=== PATIENT | female | born 1990 | race Caucasian/White ===

== ENCOUNTER 2018-01-18 23:12 | Emergency (ER) | payer SELFPAY ==
[~2018-01-18] VITALS: Ht 162.6 cm; Wt 83.5 kg
[2018-01-18 23:14] VITALS: BP 120/75
--- NOTE | 2018-01-18 23:19 | NUR ---
AMBULATED TO ER BED 4
--- NOTE | 2018-01-18 23:30 | NUR ---
27/F CAME IN ED WITH FAMILY/FRIEND, C/O 11/30 CONSTANT BURNING NONRADIATING EPIGASTRIC PAIN, X1 DAY SINCE AM. PT REPORTS NAUSEA AND BLOATING. PT DENIES FEVER, VOMITING, DIARRHEA. LBM TODAY, PT REPORTS MILD CONSTIPATION. AOX4, AMBULATORY, RR EVEN AND UNLABORED. LUNG SOUNDS CLEAR BL. BS ACTIVE X4, ABD SOFT ROUND TENDER TO EPIGASTRIC AREA, DENIES LOWER ABD TENDERNESS. DENIES MED HX, RX. ER MD AT BEDSIDE.
[2018-01-18] MEDS ORDERED: ONDANSETRON 4 MG/2 ML VIAL IVP ONE (23:35)
[2018-01-18] MEDS ORDERED: KETOROLAC 30 MG/ML VIAL IVP ONE (23:35)
[2018-01-18] MEDS ORDERED: PANTOPRAZOLE 40 MG INJ VIAL IVP ONE (23:35)
[2018-01-18 23:50] LABS: BASOPHILS # (AUTO) 0.3 K/uL (0.00-0.22); BASOPHILS % (AUTO) 2.3 % (0.0-2.0); EOSINOPHILS # (AUTO) 0.2 K/uL (0-0.4); EOSINOPHILS % (AUTO) 2.1 % (0.0-4.0); HEMATOCRIT 42.1 % (36-48); HEMOGLOBIN 13.9 g/dL (12.0-16.0); LYMPHOCYTES # (AUTO) 2.2 K/uL (2.5-16.5); LYMPHOCYTES % (AUTO) 19.4 % (20.5-51.1); MEAN CORPUSCULAR HEMOGLOBIN 28 pg (27-31); MEAN CORPUSCULAR HGB CONC 33 g/dL (33-37); MEAN CORPUSCULAR VOLUME 85.1 fL (80-94); MONOCYTES # (AUTO) 0.8 K/uL (0.8-1.0); MONOCYTES % (AUTO) 7.1 % (1.7-9.3); NEUTROPHILS # (AUTO) 7.8 K/uL (1.8-7.7); NEUTROPHILS % (AUTO) 69.1 % (42.2-75.2); PLATELET COUNT (AUTO) 316 K/uL (140-450); RED BLOOD CELL COUNT(AUTO) 4.94 MIL/uL (4.20-5.40); RED CELL DISTRIBUTION WIDTH 12.8 % (11.6-13.7); WHITE BLOOD COUNT (AUTO) 11.2 K/uL (4.8-10.8)
[2018-01-18 23:51] LABS: APPEARANCE,URINE CLEAR (CLEAR); BILIRUBIN,URINE NEGATIVE (NEGATIVE); BLOOD, URINE MODERATE (NEGATIVE); COLOR,URINE YELLOW (YELLOW); LEUKOCYTE ESTERASE ,URINE SMALL (NEGATIVE); NITRITE, URINE NEGATIVE (NEGATIVE); UGLUCOSE NEGATIVE (NEGATIVE)
--- NOTE | 2018-01-18 23:56 | NUR ---
US TECH AT BEDSIDE
[2018-01-18 23:59] LABS: RBC,URINE 11-20 (MOD) /HPF (0-5)
[2018-01-18 23:59] LABS: ANION GAP 13.9 (8-16); CREATININE 0.9 mg/dL (0.6-1.3); POTASSIUM 3.9 mmol/L (3.5-5.1)
[2018-01-19 00:05] LABS: ALBUMIN 3.6 g/dL (3.4-5.0); TOTAL BILIRUBIN 0.3 mg/dL (0.0-1.0)
--- NOTE | 2018-01-19 00:26 | NUR ---
vss, pt stable, pt awiting u/s aaox4 at this time.
[2018-01-19 01:25] VITALS: BP 114/60
--- NOTE | 2018-01-19 01:25 | NUR ---
Patient discharged with v/s stable. Written and verbal after care instructions given and explained. Patient alert, oriented and verbalized understanding of instructions. Ambulatory with steady gait. All questions addressed prior to discharge. ID band removed. Patient advised to follow up with PMD. Rx of ZOFRAN ODT 4MG, CEPHALEXIN 500MG, OMEPRAZOLE 40MG given. Patient educated on indication of medication including possible reaction and side effects. Opportunity to ask questions provided and answered.
== END 2018-01-19 01:25 | disposition home or self-care (01) ==
LOC: MED 23:12
DX: N39.0 Urinary tract infection, site not specified (principal); K76.0 Fatty (change of) liver, not elsewhere classified; K59.00 Constipation, unspecified
CPT/HCPCS: 36415; 76705; 80053; 81001; 81025; 83690; 85025; 87086; 96374; 96375; 99284; C9113; J1885; J2405; Q0092

== ENCOUNTER 2019-09-21 23:11 | Emergency (ER) | payer MEDICAID ==
[~2019-09-21] VITALS: Ht 160 cm; Wt 88.0 kg
[2019-09-21 23:26] VITALS: BP 113/58
--- NOTE | 2019-09-21 23:36 | NUR ---
PT AMBUALTED TO BED 11 WITH STEADY GAIT
--- NOTE | 2019-09-21 23:45 | NUR ---
29 Y/O F. C/O VISUAL CHANGES. PT SAW FLASHES OF WHITE LIGHT/VISION THAT WENT DARK AND BLURRY OUT OF RIGHT EYE; OD 20/30 -1; OS 20/15 -2; OU 20/15 -2. PT CURRENTLY SEES DARK SPOTS ON THE R EYE AND STATES NORMAL VISION IN L EYE. R/L PUPPILS 4MM, BRISK RETURN. THOM PM: ALOPECIA/ANXIETY/PRE-DIABETIC NKA Addendum: 09/21/19 at 2358 by [email or web address] PT STATES 06/30 INTERMITTENT HEAD PAIN. DESCRIBES IT "SORENESS"
--- NOTE | 2019-09-22 00:04 | NUR ---
ERMD AT BEDSIDE EXAMINING PT
[2019-09-22 00:24] VITALS: BP 113/58
--- NOTE | 2019-09-22 00:24 | NUR ---
Patient discharged with v/s stable. Written and verbal after care instructions given and explained. Patient alert, oriented and verbalized understanding of instructions. Ambulatory with steady gait. All questions addressed prior to discharge. ID band removed. Patient advised to follow up with PMD. Rx of ASPIRIN given. Patient educated on indication of medication including possible reaction and side effects. Opportunity to ask questions provided and answered.
== END 2019-09-22 00:24 | disposition home or self-care (01) ==
LOC: MED 23:11
DX: G45.3 Amaurosis fugax (principal); F41.9 Anxiety disorder, unspecified; L65.9 Nonscarring hair loss, unspecified
CPT/HCPCS: 82948; 99282

== ENCOUNTER 2021-04-01 04:25 | Emergency (ER) | payer MEDICAID ==
[~2021-04-01] VITALS: Ht 160 cm; Wt 88.5 kg
[2021-04-01 04:41] VITALS: BP 112/65
--- NOTE | 2021-04-01 04:41 | NUR ---
"MY RIGHT ARM HAS BEEN NUMB FOR 3-7 DAYS AND I'M REALLY TIRED". NO OBVIOUS DEFORMITIES. FROM NOTED
--- NOTE | 2021-04-01 04:46 | NUR ---
TO LOBBY FOLLOWING TRIAGE
[2021-04-01 05:50] LABS: BASOPHILS # (AUTO) 0.1 K/uL (0.00-0.22); BASOPHILS % (AUTO) 0.8 % (0.0-2.0); EOSINOPHILS # (AUTO) 0.2 K/uL (0-0.4); EOSINOPHILS % (AUTO) 3.3 % (0.0-4.0); HEMATOCRIT 45.1 % (36-48); LYMPHOCYTES # (AUTO) 2.3 K/uL (2.5-16.5); LYMPHOCYTES % (AUTO) 31.1 % (20.5-51.1); MEAN CORPUSCULAR HEMOGLOBIN 29 pg (27-31); MEAN CORPUSCULAR HGB CONC 33 g/dL (33-37); MONOCYTES # (AUTO) 0.5 K/uL (0.8-1.0); MONOCYTES % (AUTO) 6.7 % (1.7-9.3); NEUTROPHILS # (AUTO) 4.3 K/uL (1.8-7.7); NEUTROPHILS % (AUTO) 58.1 % (42.2-75.2); PLATELET COUNT (AUTO) 305 K/uL (140-450); RED BLOOD CELL COUNT(AUTO) 5.24 MIL/uL (4.20-5.40); RED CELL DISTRIBUTION WIDTH 13.7 % (11.6-13.7); WHITE BLOOD COUNT (AUTO) 7.5 K/uL (4.8-10.8)
[2021-04-01 06:41] LABS: ALBUMIN 3.6 g/dL (3.4-5.0); ANION GAP 11.7 (8-16); CARBON DIOXIDE 27.1 mmol/L (21-32); CREATININE 0.5 mg/dL (0.6-1.3); POTASSIUM 3.8 mmol/L (3.5-5.1); TOTAL BILIRUBIN 0.2 mg/dL (0.0-1.0)
--- NOTE | 2021-04-01 07:54 | NUR ---
DR ANG EXPLAINING DISCHARGE IN TRIAGE AT THIS TIME.
[2021-04-01 08:03] VITALS: BP 120/55
--- NOTE | 2021-04-01 08:03 | NUR ---
Patient discharged with v/s stable. Written and verbal after care instructions ABOUT PANIC ATTACK AND LIVING WITH ANXIETY given and explained. Patient verbalized understanding. Ambulatory with steady gait. All questions addressed prior to discharge. Advised to follow up with PMD. DR ANG PROVIDED PT WITH NEUROLOGIST NUMBERS
== END 2021-04-01 08:03 | disposition home or self-care (01) ==
LOC: MED 04:25
DX: F41.9 Anxiety disorder, unspecified (principal); R50.9 Fever, unspecified
CPT/HCPCS: 36415; 71045; 80053; 81025; 85025; 93005; 99285